=== PATIENT | female | born 1985 | race Asian ===

== ENCOUNTER 2018-02-04 03:55 | Observation (INO) | payer BC ==
[2018-02-04] MEDS: Lactated Ringers 1,000 ML IV SCH ×2 (04:00→06:37)
[2018-02-04] MEDS ORDERED: Ondansetron 4 MG/2 ML SDV IVPUSH PRN (04:18)
[2018-02-04] MEDS ORDERED: Loperamide 2 MG Cap PO PRN (04:37)
[2018-02-04] MEDS ORDERED: Water For Irrigation,Sterile 1,000 ML Container IRR PRN (06:27)
[2018-02-04] MEDS ORDERED: Methylergonovine 0.2 MG/1 ML Amp IM PRN (06:27)
[2018-02-04] MEDS ORDERED: Nalbuphine 10 MG/1 ML Vial IVPUSH PRN (06:27)
[2018-02-04] MEDS ORDERED: Butorphanol 1 MG/ML SDV IVPUSH PRN (06:27)
[2018-02-04] MEDS ORDERED: Carboprost Tromethamine 250 MCG/1 ML Amp IM PRN (06:27)
[2018-02-04] MEDS ORDERED: Tranexamic Acid 1,000 MG in Sodium Chloride 0.9% 100 ML IV PRN (06:27)
[2018-02-04] MEDS ORDERED: Sodium Chloride 0.9% 10 ML Syringe FLUSH PRN (06:27)
[2018-02-04] MEDS ORDERED: Lidocaine 1% 50 ML MDV INJECT PRN (06:27)
[2018-02-04] MEDS ORDERED: Misoprostol 200 MCG Tab PO PRN (06:27)
[2018-02-04] MEDS ORDERED: Sodium Chloride 0.9% 2.5 ML Syringe FLUSH PRN (06:27)
[2018-02-04] MEDS ORDERED: Lactated Ringers 1,000 ML IV SCH (06:30)
[2018-02-04] MEDS ORDERED: Oxytocin/0.9 % Sodium Chloride 30 UNIT/500 ML BAG IV SCH (06:30)
== END 2018-02-04 08:30 | disposition home or self-care (01) ==
LOC: MW.OBCHECK 03:55 → MW.OB 03:57 → MW.OBCHECK 06:27 → MW.OB 06:27
PROVIDERS: ADMIT Obstetrics & Gynecology; ATTEND Obstetrics & Gynecology
DX: O21.9 Vomiting of pregnancy, unspecified (principal); O99.89 Other specified diseases and conditions complicating pregnancy, childbirth and the puerperium; R19.7 Diarrhea, unspecified; Z3A.00 Weeks of gestation of pregnancy not specified
CPT/HCPCS: 36415; 59025; 81001; 85025; A9270; J2405; J7120

== ENCOUNTER 2018-05-11 23:27 | Inpatient (IN) | payer BC ==
[2018-05-11] MEDS ORDERED: Citric Acid/Sodium Citrate Solution 30 ML Cup PO SCH (23:45)
[2018-05-11] MEDS ORDERED: Oxytocin/0.9 % Sodium Chloride 30 UNIT/500 ML BAG IV SCH (23:45)
[2018-05-11] MEDS ORDERED: Sodium Chloride 0.9% 2.5 ML Syringe FLUSH PRN (23:48)
[2018-05-11] MEDS ORDERED: Sodium Chloride 0.9% 10 ML Syringe FLUSH PRN (23:48)
[2018-05-11] MEDS ORDERED: ceFAZolin 2 GM in Premix Bag 1 BAG IV ONE (23:48)
--- NOTE | 2018-05-12 00:03 | PCM.PREANE ---
Preanesthetic Assessment - Anesthesia/Transfusion/Family Hx Anesthesia History: Prior Anesthesia Without Reaction (Epidural) Other Type of Anesthesia Reaction Comment: Pt states unknown family hx of anesthesia reactions Family History of Anesthesia Reaction: No Transfusion History: No Prior Transfusion(s) Intubation History: Unknown - Review of Systems General: No Symptoms Pulmonary: No Symptoms Cardiovascular: No Symptoms Gastrointestinal: No Symptoms Neurological: No Symptoms Other: Reports: None - Physical Assessment Height: 5 ft 1 in Weight: 62.142 kg ASA Class: 2E Mental Status: Alert & Oriented x3 Airway Class: Mallampati = 2 Dentition: Reports: Normal Dentition Thyro-Mental Finger Breadths: 3 Mouth Opening Finger Breadths: 3 ROM/Head Extension: Full Lungs: Clear to Auscultation, Normal Respiratory Effort Cardiovascular: Regular Rate, Regular Rhythm - Allergies Allergies/Adverse Reactions: Allergies Allergy/AdvReac Type Severity Reaction Status Date / Time chicken derived Allergy Rash Verified 09/14/16 11:25 - Acknowledgements Anesthesia Type Planned: General Anesthesia, Spinal (Duramorph) Pt an Appropriate Candidate for the Planned Anesthesia: Yes Alternatives and Risks of Anesthesia Discussed w Pt/Guardian: Yes Pt/Guardian Understands and Agrees with Anesthesia Plan: Yes PreAnesthesia Questionnaire - Past Health History Medical/Surgical History: Denies Medical/Surgical History HEENT History: Reports: None Cardiovascular History: Reports: None Respiratory History: Reports: None Gastrointestinal History: Reports: GERD Genitourinary History: Reports: None CLIENT RELATION SPECIALIST History: Reports: : 2 Para: 1 LMP (Approximate): Musculoskeletal History: Reports: None Neurological History: Reports: None Psychiatric History: Reports: None Endocrine/Metabolic History: Reports: None Hematologic History: Reports: None Immunologic History: Reports: None Oncologic (Cancer) History: Reports: None Dermatologic History: Reports: None - Infectious Disease History Infectious Disease History: Reports: None - Past Surgical History Female Surgical History: Reports: Section - HOME MEDS Home Medications: Home Meds Sulfamethoxazole/Trimethoprim [Bactrim Ds Tablet] 1 each PO BID #14 tablet 09/14 [Rx] traMADol [Ultram] 50 mg PO BID PRN #10 tablet 09/14/16 [Rx] - CURRENT (IN HOUSE) MEDS Current Meds: Current Medications Citric Acid/Sodium Citrate (Bicitra Solution) 30 ml PO .ONCE LIANNE Cefazolin Sodium/Dextrose 2 gm (/ Premix) 50 mls @ 100 mls/hr IV ONETIME ONE Stop: 05/12/18 00:17 Lactated Ringer's (Ringers, Lactated) 1,000 mls @ 500 mls/hr IV .BOLUS LIANNE Oxytocin/Sodium Chloride (Oxytocin 30 Unit/500 Ml-Ns) 30 unit in 500 mls @ 250 mls/hr IV TITRATE LIANNE Sodium Chloride (Saline Flush) 10 ml FLUSH ASDIRECTED PRN PRN Reason: Keep Vein Open Sodium Chloride (Saline Flush) 2.5 ml FLUSH ASDIRECTED PRN PRN Reason: Keep Vein Open
[2018-05-12] MEDS ORDERED: Morphine PF 1 MG/ML Amp ONE (00:14)
[2018-05-12] MEDS ORDERED: ceFAZolin 1 GM Vial ONE (00:14)
[2018-05-12] MEDS ORDERED: Sodium Chloride 0.9% 40 ML ONE (00:14)
[2018-05-12] MEDS ORDERED: ePHEDrine 50 MG/ML SDV ONE (00:14)
[2018-05-12] MEDS ORDERED: Ondansetron 4 MG/2 ML SDV ONE (00:14)
[2018-05-12] MEDS ORDERED: Oxytocin 10 Units/1 ML SDV ONE (00:14)
[2018-05-12] MEDS: Lactated Ringers 1,000 ML IV SCH ×4 (00:18→11:03)
[2018-05-12] MEDS ORDERED: Glycopyrrolate 0.2 MG/ML SDV ONE (00:43)
[2018-05-12] MEDS ORDERED: Octyl 2-Cyanoacrylate 1 Tube ONE (00:53)
[2018-05-12] MEDS ORDERED: Lanolin 100% Cream 7 GM Tube TOP PRN (01:24)
[2018-05-12] MEDS ORDERED: diphenhydrAMINE 50 MG/ML SDV IVPUSH PRN ×2 (01:24→01:32)
[2018-05-12] MEDS ORDERED: Bisacodyl 10 MG Supp RECTAL PRN (01:24)
[2018-05-12] MEDS ORDERED: Acetaminophen/oxyCODONE 325-5 MG Tab PO PRN ×2 (01:24)
--- NOTE | 2018-05-12 01:27 | PCM.LDHP ---
L&D History of Present Illness - General Date of Service: 05/11/18 Admit Problem/Dx: Patient Status Order with Admit Dx/Problem 05/11/18 23:48 Patient Status [ADT] Routine 05/12/18 01:24 Patient Status [ADT] Routine Admission Diagnosis/Problem Admission Diagnosis/Problem - planned Source of Information: Patient History Limitations: Reports: No Limitations - History of Present Illness Improves with: Reports: None Worsens with: Reports: None Associated Symptoms: Reports: N - Related Data Allergies/Adverse Reactions: Allergies Allergy/AdvReac Type Severity Reaction Status Date / Time chicken derived Allergy Rash Verified 09/14/16 11:25 Home Medications: Home Meds Sulfamethoxazole/Trimethoprim [Bactrim Ds Tablet] 1 each PO BID #14 tablet 09/14 [Rx] traMADol [Ultram] 50 mg PO BID PRN #10 tablet 09/14/16 [Rx] Past Medical History - Past Health History Medical/Surgical History: Denies Medical/Surgical History HEENT History: Reports: None Cardiovascular History: Reports: None Respiratory History: Reports: None Gastrointestinal History: Reports: GERD Genitourinary History: Reports: None 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: Musculoskeletal History: Reports: None Neurological History: Reports: None Psychiatric History: Reports: None Endocrine/Metabolic History: Reports: None Hematologic History: Reports: None Immunologic History: Reports: None Oncologic (Cancer) History: Reports: None Dermatologic History: Reports: None - Infectious Disease History Infectious Disease History: Reports: None - Past Surgical History Female Surgical History: Reports: Section Social & Family History - Family History Family Medical History: Noncontributory - Caffeine Use Caffeine Use: Reports: None H&P Review of Systems - Review of Systems: Review Of Systems: See Below General: Reports: No Symptoms HEENT: Reports: No Symptoms Pulmonary: Reports: No Symptoms Cardiovascular: Reports: No Symptoms Gastrointestinal: Reports: No Symptoms Genitourinary: Reports: No Symptoms Musculoskeletal: Reports: No Symptoms Skin: Reports: No Symptoms Psychiatric: Reports: No Symptoms Neurological: Reports: No Symptoms Hematologic/Lymphatic: Reports: No Symptoms Immunologic: Reports: No Symptoms L&D Exam - Exam Exam: See Below - Vital Signs Weight: 62.142 kg - OB Specific Fundal Height In cm: 37 Contraction Intensity: Mild to Moderate Movement: Active Heart Tones: Present Presentation: Vertex - Exam General: Alert, Oriented HEENT: PERRLA, Conjunctiva Clear, EACs Clear, EOMI, Hearing Intact, Mucosa Moist & [place], Nares Patent, Normal Nasal Septum, Posterior Pharynx Clear, TMs Clear Neck: Supple, Trachea Midline Lungs: Clear to Auscultation, Normal Respiratory Effort Cardiovascular: Regular Rate, Regular Rhythm GI/Abdominal Exam: Normal Bowel Sounds, Soft, Non-Tender, No Organomegaly, No Distention, No Abnormal Bruit, No Mass, Pelvis Stable Rectal Exam: Normal Exam, Normal Rectal Tone Genitourinary: Normal external exam, Normal bimanual exam, Normal speculum exam Back Exam: Normal Inspection, Full Range of Motion Extremities: Normal Inspection, Normal Range of Motion, Non-Tender, No Pedal Edema, Normal Capillary Refill Skin: Warm, Dry, Intact Neurological: Cranial Nerves Intact, Reflexes Equal Bilateral Psychiatric: Alert, Normal Affect, Normal Mood - Patient Data Lab Results Last 24 hrs: Laboratory Results - last 24 hr 05/12/18 05/12/18 Range/Units 00:05 00:05 WBC 11.98 H (4.0-11.0) K/uL RBC 4.06 L (4.30-5.90) M/uL Hgb 11.0 L (12.0-16.0) g/dL Hct 33.7 L (36.0-46.0) % MCV 83.0 (80.0-98.0) fL MCH 27.1 (27.0-32.0) pg MCHC 32.6 (31.0-37.0) g/dL RDW Std Deviation 45.2 (28.0-62.0) fl RDW Coeff of Gary 15 (11.0-15.0) % Plt Count 338 (150-400) K/uL MPV 9.30 (7.40-12.00) fL Nucleated RBC % 0.0 /100WBC Nucleated RBCs # 0 K/uL Blood Type O POSITIVE Antibody Screen NEGATIVE Result Diagrams: 05/12/18 00:05 Problem List Initiated/Reviewed/Updated: Yes Orders Last 24hrs: Active Orders 24 hr Category Date Time Status Patient Status [ADT] Routine ADT 05/12/18 01:24 Ordered Ambulate [RC] PER UNIT ROUTINE Care 05/12/18 01:24 Ordered Communication Order [RC] PER UNIT ROUTINE Care 05/12/18 01:24 Ordered Communication Order [RC] PER UNIT ROUTINE Care 05/12/18 01:24 Ordered Communication Order [RC] Per Unit Routine Care 05/12/18 01:24 Ordered Non Stress Test [RC] PER UNIT ROUTINE Care 05/11/18 23:48 Active May Shower [RC] ASDIRECTED Care 05/12/18 01:24 Ordered Notify Provider Vital Signs [RC] PRN Care 05/11/18 23:50 Active Procedure Site Prep Instruct [RC] ASDIRECTED Care 05/11/18 23:48 Active RT Incentive Spirometry [RC] Q2HWA Care 05/12/18 01:24 Ordered Up ad Diane [RC] ASDIRECTED Care 05/11/18 23:48 Active Verify Patient Consent Obtain [RC] ASDIRECTED Care 05/11/18 23:48 Active Vital Signs [RC] PER UNIT ROUTINE Care 05/11/18 23:48 Active Vital Signs [RC] PER UNIT ROUTINE Care 05/12/18 01:24 Ordered HEMOGLOBIN/HEMATOCRIT,HH [HEME] Timed Lab 05/13/18 05:11 Ordered Acetaminophen/oxyCODONE [Percocet 325-5 MG] Med 05/12/18 01:24 Ordered 1 tab PO Q4H PRN Acetaminophen/oxyCODONE [Percocet 325-5 MG] Med 05/12/18 01:24 Ordered 2 tab PO Q4H PRN Bisacodyl [Dulcolax] Med 05/12/18 01:24 Ordered 10 mg RECTAL .ONCE PRN Citric Acid/Sodium Citrate [Bicitra Solution] Med 05/11/18 23:45 Active 30 ml PO .ONCE Docusate Sodium [Colace] Med 05/12/18 09:00 Ordered 100 mg PO BID Ibuprofen [Motrin] Med 05/12/18 01:24 Ordered 800 mg PO Q8H PRN Ketorolac [Toradol] Med 05/12/18 01:30 Ordered 30 mg IVPUSH Q6H Lactated Ringers @ 125 MLS/HR(1000ml) Med 05/12/18 01:30 Ordered Lactated Ringers [Ringers, Lactated] 1,000 ml IV ASDIRECTED Lactated Ringers [Ringers, Lactated] 1,000 ml Med 05/11/18 23:45 Active IV .BOLUS Lanolin [Lansinoh HPA] Med 05/12/18 01:24 Ordered See Dose Instructions TOP ASDIRECTED PRN Ondansetron [Zofran] Med 05/12/18 01:24 Ordered 4 mg IV Q4H PRN Oxytocin/0.9 % Sodium Chloride [Oxytocin 30 Unit/500 ML Med 05/11/18 23:45 Active -NS] 30 unit in 500 ml IV TITRATE Sodium Chloride 0.9% [Saline Flush] Med 05/11/18 23:48 Active 10 ml FLUSH ASDIRECTED PRN Sodium Chloride 0.9% [Saline Flush] Med 05/11/18 23:48 Active 2.5 ml FLUSH ASDIRECTED PRN diphenhydrAMINE [Benadryl] Med 05/12/18 01:24 Ordered 25 mg IVPUSH Q6H PRN Assess Lochia [WOMSER] Per Unit Routine Ot 05/12/18 01:24 Ordered Assess Uterine Involution [WOMSER] Per Unit Routine Ot 05/12/18 01:24 Ordered Breast Pump [WOMSER] Per Unit Routine Ot 05/12/18 01:24 Ordered Peripheral IV Discontinue [OM.PC] Routine Ot 05/12/18 01:24 Ordered Peripheral IV Insertion Adult [OM.PC] Routine Ot 05/11/18 23:48 Ordered Schedule Procedure [COMM] Per Unit Routine Ot 05/11/18 23:48 Ordered Sequential Compression Device [OM.PC] Per Unit Routine Ot 05/12/18 01:24 Ordered Resuscitation Status Routine Resus Stat 05/11/18 23:48 Ordered Medication Orders Citric Acid/Sodium Citrate (Bicitra Solution) 30 ml PO .ONCE LIANNE Lactated Ringer's (Ringers, Lactated) 1,000 mls @ 500 mls/hr IV .BOLUS LIANNE Last Admin: 05/12/18 00:47 Dose: 500 mls/hr Infusion: 05/12/18 00:47 Dose: 500 mls/hr Admin: 05/12/18 00:18 Dose: 500 mls/hr Oxytocin/Sodium Chloride (Oxytocin 30 Unit/500 Ml-Ns) 30 unit in 500 mls @ 250 mls/hr IV TITRATE LIANNE Sodium Chloride (Saline Flush) 10 ml FLUSH ASDIRECTED PRN PRN Reason: Keep Vein Open Sodium Chloride (Saline Flush) 2.5 ml FLUSH ASDIRECTED PRN PRN Reason: Keep Vein Open Assessment/Plan Comment:: Previous C/Section with SROM and active labor.
--- NOTE | 2018-05-12 01:28 | PCM.OPNOTE ---
- General Post-Op/Procedure Note Date of Surgery/Procedure: 05/12/18 Operative Procedure(s): Repeat C/ Section. Pre Op Diagnosis: IUP 39+ wks =, previous c/section SROM in early labor. Post-Op Diagnosis: Same Anesthesia Technique: Spinal Primary Surgeon: Johnny Purcell Tailer Off: Ning Larkin EBL in mLs: 700 Complications: None Condition: Good
[2018-05-12] MEDS ORDERED: Nalbuphine 10 MG/1 ML Vial IVPUSH PRN (01:32)
[2018-05-12] MEDS ORDERED: Naloxone 0.4 MG/ML Syringe IVPUSH PRN (01:32)
[2018-05-12] MEDS: Ketorolac 30 MG/ML SDV IVPUSH SCH ×4 (01:47→19:40)
--- NOTE | 2018-05-12 02:03 | PCM.POSTAN ---
POST ANESTHESIA ASSESSMENT - MENTAL STATUS Mental Status: Alert, Oriented - RESPIRATORY Respiratory Status: Respiratory Rate WNL, Airway Patent, O2 Saturation Stable - CARDIOVASCULAR CV Status: Pulse Rate WNL, Blood Pressure Stable - GASTROINTESTINAL GI Status: No Symptoms - PAIN Pain Score: 0 - POST OP HYDRATION Hydration Status: Adequate & Stable
[2018-05-12] MEDS: Ondansetron 4 MG/2 ML SDV IV PRN ×2 (04:32→09:31)
--- NOTE | 2018-05-12 04:35 | OR ---
SURGEON: Johnny Purcell MD DATE OF PROCEDURE: PREOPERATIVE DIAGNOSES: 1. Intrauterine , 39+ weeks. 2. Previous section. 3. Spontaneous rupture of the membrane. 4. In early active labor. POSTOPERATIVE DIAGNOSES: 1. Intrauterine , 39+ weeks. 2. Previous section. 3. Spontaneous rupture of the membrane. 4. In early active labor. OPERATION PERFORMED: Repeat low-transverse section. RESP THERAPIST: Ning Larkin, certified nurse epic professional. ANESTHESIA: Spinal, Mr. Nathan Hanson. ESTIMATED BLOOD LOSS: 700 mL. COMPLICATIONS: None. FINDINGS: Male fetus. scores reported to be 8 and 9. The weight is not available. The territory sales manager is Dr. Carolina. INDICATION FOR SURGERY: This patient is 32-year-old. She had previous section. She was scheduled for elective repeat section next . However, the patient presented to Labor and Delivery with early labor and spontaneous rupture of the membrane, so we elected to do her section now. PROCEDURE IN DETAIL: The patient was brought to the OR, properly identified, and after adequate level of spinal anesthesia with a Chun catheter in the bladder, the patient was prepped and draped in sterile fashion as usual. Low transverse Pfannenstiel skin incision was done, excising the old scar. The Angelica's fascia and rectus fascia were opened in the direction of the incision. The two recti muscles were and peritoneal cavity was entered. Bladder flap was raised in the usual manner pushing the bladder away from the lower uterine segment. Low transverse uterine incision was done and extended manually, and fetus was in a vertex position, delivered without any problem, cried immediately. scores reported to be 8 and 9, and the weight is not available. The placenta delivered spontaneous, complete, and intact. Repair of the lower uterine segment was done with 2-0 Vicryl continuous interlocking in two layers. Reperitonealization done with 3-0 Vicryl continuous, and then the peritoneal cavity evacuated completely from all blood and blood clot and closed with 3-0 Vicryl continuous. The rectus fascia was closed with #1 PDS single strand continuous, the Angelica's fascia with 3-0 Vicryl continuous, and skin closed in a subcuticular fashion and Dermabond. Instrument and sponge count was correct. The patient tolerated the procedure well, went to recovery room in stable general condition. ISELA / JANEE /[id number]
[2018-05-12] MEDS: Docusate Sodium 100 MG Cap PO SCH ×2 (09:01→21:01)
--- NOTE | 2018-05-12 09:25 | PCM48HPAN ---
Post Anesthesia Note - EVALUATION WITHIN 48HRS OF ANESTHETIC Vital Signs in Normal Range: Yes Patient Participated in Evaluation: Yes Respiratory Function Stable: Yes Airway Patent: Yes Cardiovascular Function Stable: Yes Hydration Status Stable: Yes Pain Control Satisfactory: Yes Nausea and Vomiting Control Satisfactory: Yes Mental Status Recovered: Yes Resp Rate: 14
[2018-05-13] MEDS: Ketorolac 30 MG/ML SDV IVPUSH SCH (01:47)
[2018-05-13] MEDS ORDERED: Ibuprofen 800 MG Tab PO PRN (07:30)
[2018-05-13 07:59] VITALS: BP 98/62
--- NOTE | 2018-05-13 08:04 | PCM.DCSUM1 ---
Discharge Summary - Hospital Course Diagnosis: Stroke: No - Discharge Data Discharge Date: 05/13/18 Discharge Disposition: Home, Self-Care 01 Condition: Good - Patient Summary/Data Operative Procedure(s) Performed: Repeat C/ Section. - Patient Instructions Diet: Usual Diet as Tolerated Activity: As Tolerated Driving: Do Not Drive Showering/Bathing: January Shower Wound/Incision Care: Keep Operative Site/Wound Site Clean and Dry Notify Provider of: Fever - Discharge Plan Home Medications: Home Meds Sulfamethoxazole/Trimethoprim [Bactrim Ds Tablet] 1 each PO BID #14 tablet 09/14 [Rx] traMADol [Ultram] 50 mg PO BID PRN #10 tablet 09/14/16 [Rx] Referrals: [facility] [Outside] Ning Larkin CNM [Mid-] - (1 week- May 20 @ 3:45pm w/ Ning Larkin 6 week- June 24 @ 8:30am w/ Ning Larkin ) - General Info Date of Service: 05/13/18 Functional Status: Reports: Pain Controlled - Review of Systems General: Reports: No Symptoms HEENT: Reports: No Symptoms Pulmonary: Reports: No Symptoms Cardiovascular: Reports: No Symptoms Gastrointestinal: Reports: No Symptoms Genitourinary: Reports: No Symptoms Musculoskeletal: Reports: No Symptoms Skin: Reports: No Symptoms Neurological: Reports: No Symptoms Psychiatric: Reports: No Symptoms - Patient Data Vitals - Most Recent: Last Vital Signs Temp 36.7 C 05/13/18 07:59 Pulse 73 05/13/18 07:59 Resp 14 05/13/18 07:59 BP 98/62 05/13/18 07:59 Pulse Ox 98 05/13/18 07:59 Weight - Most Recent: 62.142 kg Lab Results - Last 24 hrs: Laboratory Results - last 24 hr 05/13/18 Range/Units 05:30 Hgb 7.8 L (12.0-16.0) g/dL Hct 24.3 L (36.0-46.0) % Med Orders - Current: Current Medications Bisacodyl (Dulcolax) 10 mg RECTAL .ONCE PRN PRN Reason: Constipation Citric Acid/Sodium Citrate (Bicitra Solution) 30 ml PO .ONCE LIANNE Diphenhydramine HCl (Benadryl) 25 mg IVPUSH Q6H PRN PRN Reason: Itching or Nausea Docusate Sodium (Colace) 100 mg PO BID [facility] Last Admin: 05/12/18 21:01 Dose: 100 mg Emollient Ointment (Lansinoh Hpa) 0 gm TOP ASDIRECTED PRN PRN Reason: Sore Nipples Lactated Ringer's (Ringers, Lactated) 1,000 mls @ 500 mls/hr IV .BOLUS [facility] Last Admin: 05/12/18 00:47 Dose: 500 mls/hr Oxytocin/Sodium Chloride (Oxytocin 30 Unit/500 Ml-Ns) 30 unit in 500 mls @ 250 mls/hr IV TITRATE [facility] Lactated Ringer's (Ringers, Lactated) 1,000 mls @ 125 mls/hr IV ASDIRECTED [facility] Last Admin: 05/12/18 11:03 Dose: 125 mls/hr Ibuprofen (Motrin) 800 mg PO Q8H PRN PRN Reason: mild pain or fever Ondansetron HCl (Zofran) 4 mg IV Q4H PRN PRN Reason: Nausea/Vomiting Last Admin: 05/12/18 09:31 Dose: 4 mg Oxycodone/Acetaminophen (Percocet 325-5 Mg) 1 tab PO Q4H PRN PRN Reason: Pain (moderate 4-6) Oxycodone/Acetaminophen (Percocet 325-5 Mg) 2 tab PO Q4H PRN PRN Reason: Pain (moderate 4-6) Sodium Chloride (Saline Flush) 10 ml FLUSH ASDIRECTED PRN PRN Reason: Keep Vein Open Sodium Chloride (Saline Flush) 2.5 ml FLUSH ASDIRECTED PRN PRN Reason: Keep Vein Open Discontinued Medications Cefazolin Sodium (Ancef) Confirm Administered Dose 2 gm .ROUTE .STK-MED ONE Stop: 05/12/18 00:15 Diphenhydramine HCl (Benadryl) 25 mg IVPUSH Q4H PRN PRN Reason: Itching Stop: 05/13/18 01:32 Ephedrine Sulfate (Ephedrine Sulfate) Confirm Administered Dose 50 mg .ROUTE .STK-MED ONE Stop: 05/12/18 00:15 Glycopyrrolate (Robinul) Confirm Administered Dose 0.2 mg .ROUTE .STK-MED ONE Stop: 05/12/18 00:44 Cefazolin Sodium/Dextrose 2 gm (/ Premix) 50 mls @ 100 mls/hr IV ONETIME ONE Stop: 05/12/18 00:17 Sodium Chloride (Normal Saline) Confirm Administered Dose 40 mls @ as directed .ROUTE .STK-MED ONE Stop: 05/12/18 00:15 Ketorolac Tromethamine (Toradol) 30 mg IVPUSH Q6H LIANNE Stop: 05/13/18 01:31 Last Admin: 05/13/18 01:47 Dose: 30 mg Morphine Sulfate (Duramorph Pf) Confirm Administered Dose 1 mg .ROUTE .STK-MED ONE Stop: 05/12/18 00:15 Nalbuphine HCl (Nubain) 5 mg IVPUSH Q3H PRN PRN Reason: Pruritis Stop: 05/13/18 01:32 Naloxone HCl (Narcan) 0.1 mg IVPUSH ONETIME PRN PRN Reason: Respiratory Depression Stop: 05/13/18 01:32 Octyl Cyanoacrylate (Dermabond Advance) Confirm Administered Dose 1 applic .ROUTE .STK-MED ONE Stop: 05/12/18 00:54 Ondansetron HCl (Zofran) Confirm Administered Dose 4 mg .ROUTE .STK-MED ONE Stop: 05/12/18 00:15 Oxytocin (Pitocin) Confirm Administered Dose 20 unit .ROUTE .STK-MED ONE Stop: 05/12/18 00:15 - Exam General: Reports: Alert, Oriented HEENT: Reports: Pupils Equal, Pupils Reactive, EOMI, Mucous Membr. Moist/[place] Neck: Reports: Supple Lungs: Reports: Clear to Auscultation, Normal Respiratory Effort Cardiovascular: Reports: Regular Rate, Regular Rhythm GI/Abdominal Exam: Normal Bowel Sounds, Soft, Non-Tender, No Organomegaly, No Distention, No Abnormal Bruit, No Mass, Pelvis Stable (Female) Exam: Normal External Exam, Normal Speculum Exam, Normal Bimanual Exam Rectal (Female) Exam: Normal Exam, Normal Rectal Tone Back Exam: Reports: Normal Inspection, Full Range of Motion Extremities: Normal Inspection, Normal Range of Motion, Non-Tender, No Pedal Edema, Normal Capillary Refill Skin: Reports: Warm, Dry, Intact Wound/Incisions: Reports: Healing Well Neurological: Reports: No New Focal Deficit Psy/Mental Status: Reports: Alert, Normal Affect, Normal Mood
[2018-05-13] MEDS: Docusate Sodium 100 MG Cap PO SCH (08:58)
== END 2018-05-13 12:20 | disposition home or self-care (01) | DRG 540 ==
LOC: MW.OBCHECK 23:27 → MW.OB 23:31 → MW.OBCHECK 05-12 00:55 → MW.OB 05-12 00:55
PROVIDERS: ADMIT Obstetrics & Gynecology; ATTEND Obstetrics & Gynecology
PROC: 10D00Z1 Extraction of Products of Conception, Low, Open Approach (ICD-10-PCS; principal; 2018-05-12)
DX: O42.92 Full-term premature rupture of membranes, unspecified as to length of time between rupture and onset of labor (principal); O34.211 Maternal care for low transverse scar from previous cesarean delivery; Z3A.39 39 weeks gestation of pregnancy; Z37.0 Single live birth
CPT/HCPCS: 36415; 59025; 85014; 85018; 85027; 86850; 86900; 86901; A9270-GY; J0690; J1885; J2274; J2405; J2590; J3490; J7120

== ENCOUNTER 2022-06-14 05:18 | Inpatient (IN) | payer OTHER ==
[2022-06-14] MEDS: Lactated Ringers 1,000 ML IV SCH ×4 (06:00→13:01)
[2022-06-14] MEDS ORDERED: Sodium Chloride 0.9% 2.5 ML Syringe FLUSH PRN (06:19)
[2022-06-14] MEDS ORDERED: Sodium Chloride 0.9% 20 ML SDV IV PRN (06:19)
[2022-06-14] MEDS ORDERED: Citric Acid/Sodium Citrate Solution 30 ML Cup PO ONE (06:19)
[2022-06-14] MEDS ORDERED: ceFAZolin 1 GM in Premix Bag 1 BAG IV ONE (06:19)
[2022-06-14] MEDS ORDERED: Sodium Chloride 0.9% 10 ML Syringe FLUSH PRN (06:19)
[2022-06-14] MEDS ORDERED: Oxytocin/0.9 % Sodium Chloride 30 UNIT/500 ML BAG IV SCH ×2 (06:30→12:30)
[2022-06-14] MEDS ORDERED: Morphine PF 10 MG/10 ML SDV ONE (07:25)
[2022-06-14] MEDS ORDERED: Ondansetron 4 MG/2 ML SDV ONE (07:26)
[2022-06-14] MEDS ORDERED: Phenylephrine HCl In 0.9% NaCl 1 MG/10 ML Vial ONE (07:26)
[2022-06-14] MEDS ORDERED: Dexmedetomidine 200 MCG/2 ML SDV ONE (07:26)
[2022-06-14] MEDS ORDERED: Dexamethasone 4 MG/ML 5 ML MDV ONE (07:26)
[2022-06-14] MEDS ORDERED: Oxytocin 10 Units/1 ML SDV ONE (07:26)
[2022-06-14] MEDS ORDERED: Ropivacaine 0.5% 5 MG/ML 30 ML SDV ONE (07:26)
[2022-06-14] MEDS ORDERED: Water For Injection, Sterile 40 ML ONE (07:26)
[2022-06-14] MEDS ORDERED: ceFAZolin 1 GM Vial ONE (07:26)
[2022-06-14] MEDS ORDERED: Ondansetron 4 MG/2 ML SDV IVPUSH PRN ×3 (10:20→12:22)
[2022-06-14] MEDS ORDERED: Albuterol 0.083% 2.5 MG/3 ML Neb Soln NEB PRN (10:20)
[2022-06-14] MEDS ORDERED: ePHEDrine 50 MG/ML SDV IVPUSH PRN (10:20)
[2022-06-14] MEDS ORDERED: Naloxone 0.4 MG/ML SDV IVPUSH PRN ×2 (10:20)
[2022-06-14] MEDS ORDERED: diphenhydrAMINE 50 MG/ML SDV IVPUSH PRN ×2 (10:20→12:22)
[2022-06-14] MEDS ORDERED: fentaNYL 100 MCG/2 ML SDV IVPUSH PRN (10:20)
[2022-06-14] MEDS ORDERED: Nalbuphine HCl 10 MG/ 1ML Amp IVPUSH PRN (10:24)
[2022-06-14] MEDS ORDERED: Phenylephrine HCl In 0.9% NaCl 1 MG/10 ML Vial IVPUSH SCH (10:30)
[2022-06-14] MEDS ORDERED: Bisacodyl 10 MG Supp RECTAL PRN (12:22)
[2022-06-14] MEDS ORDERED: Ibuprofen 800 MG Tab PO PRN (12:22)
[2022-06-14] MEDS ORDERED: Tranexamic Acid 1,000 MG in Sodium Chloride 0.9% 100 ML IV PRN (12:22)
[2022-06-14] MEDS ORDERED: Oxytocin 10 Units/1 ML SDV IM PRN (12:22)
[2022-06-14] MEDS ORDERED: Methylergonovine 0.2 MG/1 ML Amp IM PRN (12:22)
[2022-06-14] MEDS ORDERED: Acetaminophen/oxyCODONE 325-5 MG Tab PO PRN (12:22)
[2022-06-14] MEDS ORDERED: Lanolin 100% Cream 7 GM Tube TOP PRN (12:22)
[2022-06-14] MEDS ORDERED: Misoprostol 200 MCG Tab RECTAL PRN (12:22)
[2022-06-14] MEDS ORDERED: Lactated Ringers 1,000 ML IV SCH (12:30)
[2022-06-14] MEDS: Ketorolac 30 MG/ML SDV IVPUSH SCH ×2 (13:20→18:19)
[2022-06-14] MEDS: Docusate Sodium 100 MG Cap PO SCH (20:23)
[2022-06-15] MEDS: Ketorolac 30 MG/ML SDV IVPUSH SCH (01:12)
[2022-06-15] MEDS: Docusate Sodium 100 MG Cap PO SCH ×2 (10:15→23:07)
[2022-06-15] MEDS: Acetaminophen/oxyCODONE 325-5 MG Tab PO PRN (14:38)
[2022-06-16] MEDS: Acetaminophen/oxyCODONE 325-5 MG Tab PO PRN (06:17)
[2022-06-16 08:05] VITALS: BP 103/61; PULSE 68
[2022-06-16] MEDS: Docusate Sodium 100 MG Cap PO SCH (08:42)
== END 2022-06-16 10:50 | disposition home or self-care (01) | DRG 788 ==
LOC: MW.OB 05:18
PROVIDERS: ADMIT Obstetrics & Gynecology Obstetrics; ATTEND Obstetrics & Gynecology Obstetrics
PROC: 10D00Z1 Extraction of Products of Conception, Low, Open Approach (ICD-10-PCS; principal; 2022-06-14)
DX: O34.211 Maternal care for low transverse scar from previous cesarean delivery (principal); Z37.0 Single live birth; O99.62 Diseases of the digestive system complicating childbirth; K21.9 Gastro-esophageal reflux disease without esophagitis; O77.0 Labor and delivery complicated by meconium in amniotic fluid; Z3A.39 39 weeks gestation of pregnancy
CPT/HCPCS: 36415; 59025; 59409; 85014; 85018; 85027; 86592; 86850; 86900; 86901; A9270-GY; J0690; J1100; J1200; J1885; J2274; J2405; J2590; J2795; J7120